=== PATIENT | male | born 1995 | race Caucasian/White ===

== ENCOUNTER 2016-03-03 22:15 | Inpatient (IN) | payer BC ==
[~2016-03-03] VITALS: Ht 182.9 cm; Wt 54.0 kg
[2016-03-03] MEDS ORDERED: METHYLPRED SOD SUCC 125 MG/2 ML VIAL ONE (22:17)
[2016-03-03] MEDS ORDERED: DUONEB INH ONE (22:19)
[2016-03-03 22:29] VITALS: RESP 20
[2016-03-03] MEDS ORDERED: ACETAMINOPHEN 1,000 MG/100 ML IV SCH (22:35)
[2016-03-03] MEDS ORDERED: INSULIN DRIP 1 UNIT/ML 100 ML IV PRN (22:35)
[2016-03-03] MEDS ORDERED: POTASSIUM CHLORIDE PREMIX 50 ML IV PRN (22:35)
[2016-03-03] MEDS ORDERED: DEXTROSE 50% SYRINGE 50 ML IV PRN (22:35)
[2016-03-03] MEDS ORDERED: CISATRACURIUM BESYLATE IV SCH (22:35)
[2016-03-03] MEDS ORDERED: DEXTROSE 5% IV SCH (22:35)
[2016-03-03] MEDS ORDERED: PROPOFOL 20 ML 20 ML IV ONE (22:37)
[2016-03-03] MEDS ORDERED: PROPOFOL 50 ML IV ONE (22:37)
[2016-03-03] MEDS ORDERED: VECURONIUM BR 10 MG/10 ML IV ONE (22:47)
[2016-03-03] MEDS ORDERED: FENTANYL DRIP 50 ML IV ONE (23:23)
[2016-03-03] MEDS ORDERED: ONDANSETRON 4 MG VIAL IV PRN (23:25)
[2016-03-03] MEDS ORDERED: SALINE FLUSH 10 ML FLUSH PRN (23:25)
[2016-03-03] MEDS ORDERED: DUONEB INH SCH (23:25)
[2016-03-04] VITALS (74 sets, daily range): BP systolic 92–166; RESP 18–23; TEMP 93–93.7; Ht 182.9 cm; Wt 54.0 kg
[2016-03-04] MEDS ORDERED: METHYLPRED SOD SUCC 125 MG/2 ML VIAL IV SCH
[2016-03-04] MEDS ORDERED: LACT RINGERS 1,000 ML IV SCH
[2016-03-04] MEDS ORDERED: PROPOFOL 100 ML 100 ML IV ONE (00:53)
[2016-03-04] MEDS: ARTIFICIAL TEARS OINT EYE EACH SCH ×13 (02:00→23:42)
[2016-03-04] MEDS: ACETAMINOPHEN 1,000 MG/100 ML IV SCH ×5 (02:08→23:42)
[2016-03-04] MEDS: CHLORHEXIDINE 0.12% ORAL CARE FOR VENT PATIENTS 15 ML SWAB SCH ×3 (02:09→23:42)
[2016-03-04] MEDS: SALINE FLUSH 10 ML FLUSH SCH ×3 (02:10→20:01)
[2016-03-04] MEDS: [UNRECOGNIZED DRUG - REMARK] XX SCH ×5 (02:10→23:44)
[2016-03-04] MEDS ORDERED: [UNRECOGNIZED DRUG - REMARK] XX ONE (02:15)
[2016-03-04] MEDS: DUONEB INH SCH ×6 (02:59→22:17)
[2016-03-04] MEDS: FENTANYL DRIP 50 ML IV SCH ×6 (04:51→23:07)
[2016-03-04] MEDS: PROPOFOL 100 ML 100 ML IV SCH ×3 (05:44→21:10)
[2016-03-04] MEDS: METHYLPRED SOD SUCC 125 MG/2 ML VIAL IV SCH ×4 (05:56→23:42)
[2016-03-04] MEDS: SODIUM CHLORIDE 0.9% FLUSH BAG 500 ML IV SCH (05:59)
[2016-03-04] MEDS ORDERED: Flu Vaccine Quadrivalent 60 MCG/0.5 ML IM.VACC ONE (06:40)
[2016-03-04] MEDS: NEB-BUDESONIDE 0.5 MG INH SCH ×2 (07:33→18:12)
[2016-03-04] MEDS ORDERED: CALCIUM GLUCONATE 1,000 MG in SODIUM CHLORIDE 0.9% 100 ML IV ONE (08:10)
[2016-03-04] MEDS: POTASSIUM CHLORIDE PREMIX 50 ML IV SCH ×2 (08:38→10:25)
[2016-03-04] MEDS: MAGNESIUM SULF 1 GM/100 ML 100 ML IV SCH ×3 (09:17→11:34)
[2016-03-04] MEDS: CEFTRIAXONE 1 GM in SODIUM CHLORIDE 0.9% 50 ML IV SCH (09:29)
[2016-03-04] MEDS: PANTOPRAZOLE 40 MG VIAL IV SCH (09:29)
[2016-03-04] MEDS: AZITHROMYCIN 500 MG in SODIUM CHLORIDE 0.9% 250 ML IV SCH (11:26)
[2016-03-04] MEDS ORDERED: MISSING DOSE XX ONE ×2 (12:15→20:40)
[2016-03-05] VITALS (57 sets, daily range): BP systolic 78–166; RESP 17–24; TEMP 93.4–98.9
[2016-03-05] MEDS: ARTIFICIAL TEARS OINT EYE EACH SCH ×12 (01:53→23:44)
[2016-03-05] MEDS: FENTANYL DRIP 50 ML IV SCH ×5 (02:35→20:25)
[2016-03-05] MEDS: PROPOFOL 100 ML 100 ML IV SCH ×4 (02:36→21:50)
[2016-03-05] MEDS: DUONEB INH SCH ×6 (02:58→23:09)
[2016-03-05] MEDS: SODIUM CHLORIDE 0.9% 1,000 ML IV SCH (05:03)
[2016-03-05] MEDS: METHYLPRED SOD SUCC 125 MG/2 ML VIAL IV SCH ×3 (05:43→19:33)
[2016-03-05] MEDS: ACETAMINOPHEN 1,000 MG/100 ML IV SCH ×3 (05:43→19:33)
[2016-03-05] MEDS: SODIUM CHLORIDE 0.9% FLUSH BAG 500 ML IV SCH (05:44)
[2016-03-05] MEDS: [UNRECOGNIZED DRUG - REMARK] XX SCH ×2 (05:44→12:00)
[2016-03-05] MEDS: NEB-BUDESONIDE 0.5 MG INH SCH ×2 (06:47→19:13)
[2016-03-05] MEDS: SALINE FLUSH 10 ML FLUSH SCH ×2 (08:00→19:57)
[2016-03-05] MEDS: CEFTRIAXONE 1 GM in SODIUM CHLORIDE 0.9% 50 ML IV SCH (08:12)
[2016-03-05] MEDS: PANTOPRAZOLE 40 MG VIAL IV SCH (08:12)
[2016-03-05] MEDS ORDERED: NOREPINEPHRINE 1 MG/ML 4 ML VIAL IV ONE (08:25)
[2016-03-05] MEDS ORDERED: NOREPINEPHRINE 16 MG in DEXTROSE 5% 234 ML IV SCH (08:30)
[2016-03-05] MEDS: AZITHROMYCIN 500 MG in SODIUM CHLORIDE 0.9% 250 ML IV SCH (09:12)
[2016-03-05] MEDS: NEB-BROVANA 15 MCG/2 ML INH SCH ×2 (10:19→19:13)
[2016-03-05] MEDS ORDERED: LEVETIRACETAM INJ 1,000 MG in SODIUM CHLORIDE 0.9% 100 ML IV STA (11:25)
[2016-03-05] MEDS ORDERED: LORAZEPAM 2 MG/ML VIAL IV STA (11:25)
[2016-03-05] MEDS ORDERED: LORAZEPAM 2 MG/ML VIAL ONE (11:28)
[2016-03-05] MEDS: CHLORHEXIDINE 0.12% ORAL CARE FOR VENT PATIENTS 15 ML SWAB SCH ×2 (12:00→23:44)
[2016-03-05] MEDS ORDERED: PHARMACY TO DOSE VANCOMYCIN IV SCH (14:10)
[2016-03-05] MEDS ORDERED: GADAVIST 10 ML SYR (HMH) IV ONE (16:08)
[2016-03-05] MEDS ORDERED: MISSING DOSE XX ONE (17:10)
[2016-03-05] MEDS ORDERED: LORAZEPAM 2 MG/ML VIAL IV PRN (17:15)
[2016-03-05] MEDS ORDERED: CISATRACURIUM 100 MG/250 ML 250 ML IV ONE (17:36)
[2016-03-05] MEDS ORDERED: CISATRACURIUM IV PRN (17:40)
[2016-03-05] MEDS ORDERED: DEXTROSE 5% IV PRN (17:40)
[2016-03-05] MEDS: VANCOMYCIN 750 MG in SODIUM CHLORIDE 0.9% 250 ML IV SCH ×2 (17:52→20:43)
[2016-03-05] MEDS ORDERED: MIDAZOLAM HCL 5 MG/5 ML VIAL IV PRN (18:55)
[2016-03-05] MEDS ORDERED: MIDAZOLAM 2 MG/2 ML VIAL IV PRN (19:05)
[2016-03-05] MEDS: LEVETIRACETAM INJ 1,000 MG in SODIUM CHLORIDE 0.9% 100 ML IV SCH (19:57)
[2016-03-06] VITALS (47 sets, daily range): BP systolic 106–167; RESP 10–22; TEMP 98.2–99.2
[2016-03-06] MEDS: METHYLPRED SOD SUCC 125 MG/2 ML VIAL IV SCH ×2 (00:51→06:15)
[2016-03-06] MEDS: DUONEB INH SCH ×6 (02:42→22:29)
[2016-03-06] MEDS: FENTANYL DRIP 50 ML IV SCH ×4 (02:46→16:55)
[2016-03-06] MEDS: ARTIFICIAL TEARS OINT EYE EACH SCH ×5 (02:46→10:00)
[2016-03-06] MEDS: PROPOFOL 100 ML 100 ML IV SCH ×4 (03:21→23:42)
[2016-03-06] MEDS: SODIUM CHLORIDE 0.9% 1,000 ML IV SCH ×2 (05:17→20:20)
[2016-03-06] MEDS: SODIUM CHLORIDE 0.9% FLUSH BAG 500 ML IV SCH ×2 (05:30)
[2016-03-06] MEDS ORDERED: LANSOPRAZOLE 30 MG SOLUTAB NG SCH (07:00)
[2016-03-06] MEDS: NEB-BROVANA 15 MCG/2 ML INH SCH ×2 (07:22→17:32)
[2016-03-06] MEDS: NEB-BUDESONIDE 0.5 MG INH SCH ×2 (07:22→17:32)
[2016-03-06] MEDS: PANTOPRAZOLE 40 MG VIAL IV SCH ×2 (08:19→20:12)
[2016-03-06] MEDS: CEFTRIAXONE 1 GM in SODIUM CHLORIDE 0.9% 50 ML IV SCH (08:19)
[2016-03-06] MEDS: LEVETIRACETAM INJ 1,000 MG in SODIUM CHLORIDE 0.9% 100 ML IV SCH (08:19)
[2016-03-06] MEDS: SALINE FLUSH 10 ML FLUSH SCH ×2 (08:20→20:11)
[2016-03-06] MEDS: AZITHROMYCIN 500 MG in SODIUM CHLORIDE 0.9% 250 ML IV SCH (09:36)
[2016-03-06] MEDS: VANCOMYCIN 750 MG in SODIUM CHLORIDE 0.9% 250 ML IV SCH ×2 (09:37→16:56)
[2016-03-06] MEDS ORDERED: PHARMACY TO DOSE XX SCH (11:15)
[2016-03-06] MEDS ORDERED: FOSPHENYTOIN 1,000 PE in SODIUM CHLORIDE 0.9% 100 ML IV ONE (11:20)
[2016-03-06] MEDS ORDERED: ARTIFICIAL TEARS OINT EYE EACH PRN (12:00)
[2016-03-06] MEDS: METHYLPRED SOD SUCC 40 MG VIAL IV SCH ×2 (12:48→18:43)
[2016-03-06] MEDS: CHLORHEXIDINE 0.12% ORAL CARE FOR VENT PATIENTS 15 ML SWAB SCH (12:48)
[2016-03-06] MEDS: LEVETIRACETAM INJ 500 MG in SODIUM CHLORIDE 0.9% 100 ML IV SCH ×2 (14:12→20:12)
[2016-03-06] MEDS: FOSPHENYTOIN PE IV SCH ×2 (16:56→23:09)
[2016-03-06] MEDS: SODIUM CHLORIDE IV SCH ×2 (16:56→23:09)
[2016-03-07] VITALS (24 sets, daily range): BP systolic 101–137; RESP 13–20; TEMP 98.7–99.6
[2016-03-07] MEDS: METHYLPRED SOD SUCC 40 MG VIAL IV SCH ×3 (00:03→12:14)
[2016-03-07] MEDS: MIDAZOLAM 2 MG/2 ML INJ IV PRN ×6 (00:21→17:38)
[2016-03-07] MEDS: FENTANYL DRIP 50 ML IV SCH ×3 (00:55→10:40)
[2016-03-07] MEDS: VANCOMYCIN 750 MG in SODIUM CHLORIDE 0.9% 250 ML IV SCH (00:58)
[2016-03-07] MEDS: LEVETIRACETAM INJ 500 MG in SODIUM CHLORIDE 0.9% 100 ML IV SCH ×3 (02:06→14:08)
[2016-03-07] MEDS: DUONEB INH SCH ×4 (03:11→14:37)
[2016-03-07] MEDS: LORAZEPAM 2 MG/ML VIAL IV PRN ×4 (04:15→11:06)
[2016-03-07] MEDS: PROPOFOL 100 ML 100 ML IV SCH ×4 (04:16→16:35)
[2016-03-07] MEDS: SODIUM CHLORIDE IV SCH ×3 (04:35→17:07)
[2016-03-07] MEDS: FOSPHENYTOIN PE IV SCH ×3 (04:35→17:07)
[2016-03-07] MEDS: SODIUM CHLORIDE 0.9% FLUSH BAG 500 ML IV SCH ×2 (05:40→05:51)
[2016-03-07] MEDS: NEB-BROVANA 15 MCG/2 ML INH SCH (06:58)
[2016-03-07] MEDS: NEB-BUDESONIDE 0.5 MG INH SCH (06:58)
[2016-03-07] MEDS ORDERED: PANTOPRAZOLE 40 MG TAB PO SCH (07:00)
[2016-03-07] MEDS ORDERED: VANCOMYCIN 1,250 MG in SODIUM CHLORIDE 0.9% 250 ML IV SCH (08:00)
[2016-03-07] MEDS: PANTOPRAZOLE 40 MG VIAL IV SCH (08:04)
[2016-03-07] MEDS: SALINE FLUSH 10 ML FLUSH SCH (08:05)
[2016-03-07] MEDS ORDERED: PHARMACY TO DOSE XX SCH (08:15)
[2016-03-07] MEDS: MIDAZOLAM IV SCH ×2 (08:54→14:04)
[2016-03-07] MEDS: CEFTRIAXONE 1 GM in SODIUM CHLORIDE 0.9% 50 ML IV SCH (08:54)
[2016-03-07] MEDS: SODIUM CHLORIDE 0.9% IV SCH ×3 (09:45→15:49)
[2016-03-07] MEDS: NAFCILLIN SOD IV SCH ×3 (09:45→15:49)
[2016-03-07] MEDS: CHLORHEXIDINE 0.12% ORAL CARE FOR VENT PATIENTS 15 ML SWAB SCH ×2 (12:00)
[2016-03-09] MEDS ORDERED: PANTOPRAZOLE 40 MG TAB PO SCH (07:00)
== END 2016-03-07 15:46 | disposition short-term general hospital (02) | DRG 208 ==
LOC: ER 22:15 → ENPENDDIS 22:35 → EMR 22:35 → CCU 03-04 01:25
PROVIDERS: ADMIT Internal Medicine; ATTEND Internal Medicine
PROC: 5A1945Z Respiratory Ventilation, 24-96 Consecutive Hours (ICD-10-PCS; principal; 2016-03-03)
PROC: 0BH17EZ Insertion of Endotracheal Airway into Trachea, Via Natural or Artificial Opening (ICD-10-PCS; 2016-03-03)
PROC: 04HY32Z Insertion of Monitoring Device into Lower Artery, Percutaneous Approach (ICD-10-PCS; 2016-03-03)
PROC: 05HM33Z Insertion of Infusion Device into Right Internal Jugular Vein, Percutaneous Approach (ICD-10-PCS; 2016-03-03)
CPT/HCPCS: 36415; 36600; 51702; 70450; 70553; 71010; 80051; 80053; 80069; 80202; 82330; 82553; 82803; 82947; 83605; 83735; 84100; 84484; 85025; 85610; 85730; 87040; 87071; 87077; 87186; 87804; 93005; 94002; 94003; 94640; 94799; 95819; 96374; 96375; 99222; 99233; 99291